=== PATIENT | male | born 1965 | race Caucasian/White ===

== ENCOUNTER 2017-08-11 16:07 | Emergency (ER) | payer OTHER ==
[~2017-08-11] VITALS: Wt 109.7 kg
[2017-08-11] MEDS ORDERED: ENALAPRILAT 1.25 MG INJ IV ONE (19:30)
[2017-08-11] MEDS ORDERED: NITROGLYCERIN (SL) 0.4 MG TAB SL ONE (19:30)
[2017-08-11 21:22] VITALS: BP 167/78; PULSE 81; RESP 20
--- NOTE | 2017-08-11 22:27 | ERD ---
ER Documentation Chief Complaint Chief Complaint UNABLE TO CONTROL HTN HPI Patient referred here by PMD for severely elevated blood pressure, he states he has a history of hypertension and has been using his medications as prescribed. Patient denies headache or blurry vision, no recent vision changes, no paresis or paresthesias, no complaints of chest pain or shortness of breath, no weakness in his arms or legs. ROS All systems reviewed and are negative except as per history of present illness. PMhx/Soc Obesity, hypertension History of Surgery: No Anesthesia Reaction: No Hx Neurological Disorder: No Hx Respiratory Disorders: No Hx Cardiac Disorders: No Hx Psychiatric Problems: No Hx Miscellaneous Medical Probl: No Hx Alcohol Use: No Hx Substance Use: No Hx Tobacco Use: Yes Smoking Status: Current every day smoker FmHx Family History: No diabetes Physical Exam Vitals Vital Signs Date Time Temp Pulse Resp B/P Pulse Ox O2 Delivery O2 Flow Rate FiO2 08/11/17 21:22 81 20 167/78 99 Room Air 08/11/17 16:13 98.9 81 18 196/92 99 Physical Exam GENERAL: Well-developed, well-nourished, well-hydrated, in no apparent distress , looks nontoxic in appearance HEENT: Moist mucous membranes, pink conjunctiva, no cervical spine tenderness or step-off deformities, no goiter, no jaundice or icterus, extraocular movements intact without pain. No submandibular induration, and no pharyngeal erythema NEURO: Alert and oriented 3, cranial nerves II through XII intact bilaterally, pupils equal round reactive to light, no focal deficits or facial asymmetry, sensation intact distally Strength 5/5 in upper and lower extremities bilaterally CARDIAC: Regular rate and rhythm, no murmurs rubs or gallops LUNGS: Clear bilaterally no wheezing crackles or stridor ABDOMEN: Soft nontender, no guarding, no rigidity, no rebound, no psoas sign no obturator sign. Normoactive bowel sounds SKIN: Warm and dry to touch, no abrasions, contusions, or hematomas, no lacerations, no ecchymosis, no target lesions, and without ulcers EXTREMITIES: No clubbing cyanosis or edema, calves are bilaterally symmetrical, no Homans sign, no popliteal cord sign. Distal pulses equal and bilateral PSYCH: Normal affect without agitation or irritability Result Diagram: 11/3/17 1909 11/3/17 1909 Results 24 hrs Laboratory Tests Test 08/11/17 19:09 White Blood Count 12.010^3/ul Red Blood Count 5.2510^6/ul Hemoglobin 15.3g/dl Hematocrit 47.5% Mean Corpuscular Volume 90.5fl Mean Corpuscular Hemoglobin 29.1pg Mean Corpuscular Hemoglobin Concent 32.2g/dl Red Cell Distribution Width 13.0% Platelet Count 47359^3/UL Mean Platelet Volume 10.5fl Neutrophils % 63.7% Lymphocytes % 23.2% Monocytes % 10.6% Eosinophils % 1.6% Basophils % 0.6% Nucleated Red Blood Cells % 0.0/100WBC Neutrophils # 7.610^3/ul Lymphocytes # 2.810^3/ul Monocytes # 1.310^3/ul Eosinophils # 0.210^3/ul Basophils # 0.110^3/ul Nucleated Red Blood Cells # 0.010^3/ul Sodium Level 141mmol/L Potassium Level 3.9mmol/L Chloride Level 102mmol/L Carbon Dioxide Level 28mmol/L Anion Gap 15 Blood Urea Nitrogen 14mg/dl Creatinine 0.93mg/dl Glucose Level 75mg/dl Calcium Level 8.8mg/dl Total Bilirubin 0.3mg/dl Direct Bilirubin 0.00mg/dl Indirect Bilirubin 0.3mg/dl Aspartate Amino Transf (AST/SGOT) 35IU/L Alanine Aminotransferase (ALT/SGPT) 46IU/L Alkaline Phosphatase 56IU/L Troponin I < 0.012ng/ml Total Protein 7.5g/dl Albumin 4.1g/dl Globulin 3.40g/dl Albumin/Globulin Ratio 1.20 Lipase 278U/L Current Medications Medications (Trade) Dose Ordered Sig/Odell Route PRN Reason Start Time Stop Time Status Last Admin Dose Admin Nitroglycerin (Nitroglycerin (Sl Tab) 0.4 Mg) 1 tab ONCE ONCE SL 08/11/17 19:30 08/11/17 19:31 DC 08/11/17 19:51 Enalaprilat (Vasotec Iv) 1.25 mg ONCE ONCE IV 08/11/17 19:30 08/11/17 19:31 DC 08/11/17 19:51 Clonidine (Catapres) 0.1 mg ONCE ONCE PO 08/11/17 21:00 08/11/17 21:01 DC 08/11/17 21:11 Procedures/MDM IV line was established 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 Patient was afebrile EKG performed, read by me: 80 bpm, normal sinus rhythm, normal axis, no acute ST segment changes, narrow QRS complex, with good R-wave progression in precordial leads. Initial blood pressure was over 100 mmHg diastolic, I treated him here with clonidine 0.1 mg p.o., nitroglycerin 0.4 mg sublingual 1, and enalapril 1.25 mg IV 1 with good effect. CBC and electrolytes are normal, liver function tests are normal, troponin was negative. Patient remained asymptomatic. 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 I also cautioned him regarding hypertensive retinopathy and vision changes due to chronic uncontrolled hypertension. Patient is aware of strokes and [place] due to uncontrolled hypertension. Differential diagnoses considered, included but not limited to acute coronary syndrome, pulmonary embolism, aortic dissection, abdominal aortic aneurysm, sepsis, stroke, meningitis, encephalitis, pneumonia, appendicitis, cholecystitis , bowel obstruction, pyelonephritis, nephrolithiasis, cystitis, as well as metabolic, hematologic, and electrolyte abnormalities. As well as abscess, cellulitis, fractures, and dislocations. Patient feels much better at this time, and vital signs are normal, symptoms have improved. I did give strict instructions to return to the ED if symptoms continue or worsen, patient will otherwise follow-up with primary care physician. Patient understood instructions and agreed to plan. Disclaimer: Inadvertent spelling and grammatical errors are likely due to EHR/ dictation software use and do not reflect on the overall quality of patient care. Also, please note that the electronic time recorded on this note does not necessarily reflect the actual time of the patient encounter. Departure Diagnosis: Primary Impression: Hypertension Hypertension type: essential hypertension Qualified Code: I10 - Essential hypertension Additional Impression: Hypertensive crisis Condition: Good Patient Instructions: High Blood Pressure (Hypertension) DAVID FRAZIER MD Aug 11, 2017 22:27
== END 2017-08-11 21:30 | disposition home or self-care (01) ==
LOC: E/R 16:07
DX: I10 Essential (primary) hypertension (principal); I16.9 Hypertensive crisis, unspecified; F17.210 Nicotine dependence, cigarettes, uncomplicated; E66.9 Obesity, unspecified
CPT/HCPCS: 36415; 80053; 83690; 84484; 85025; 93005; 96374; Z7502; Z7610